=== PATIENT | female | born 1990 | race Caucasian/White ===

== ENCOUNTER 2016-10-04 20:42 | Inpatient (IN) | payer OTHER ==
[2016-10-04 20:49] VITALS: TEMP 99.4
[2016-10-04] MEDS ORDERED: LACTATED RINGERS SOLUTION 500 ML IV ONE (21:45)
[2016-10-04] MEDS ORDERED: LACTATED RINGERS SOLUTION 1,000 ML IV SCH (22:45)
[2016-10-04] MEDS ORDERED: BETAMET ACET/BETAMET NA PH 30 MG/5 ML VIAL IM ONE (22:58)
[2016-10-04] MEDS ORDERED: AMPICILLIN - 2 GM in SODIUM CHLORIDE 100 ML IVPB ONE (22:59)
[2016-10-04] MEDS ORDERED: ERYTHROMYCIN *INJECTION* 500 MG VIAL IVPB ONE (22:59)
--- NOTE | 2016-10-04 23:10 | PN ---
Progress Note, Physician Chief Complaint: Leakage of clear fluid History of Present Illness: 26 yo , @ 26.2 weeks, gestation, EDC 01/08/17, presents to L&D c/o leakage of clear fluid x 3 days. She decided to come today because abdominal cramps. - Current Medication List Current Medications: Active Medications Betamethasone Acet/Betameth SodPhos (Celestone Soluspan -) 12.5 mg IM ONCE ONE Stop: 10/04/16 22:59 Erythromycin Lactobionate (Erythromycin Injection -) 500 mg IVPB ONCE ONE Stop: 10/04/16 23:00 Ampicillin Sodium 2 gm/ Sodium (Chloride) 100 mls @ 200 mls/hr IVPB ONCE ONE Stop: 10/04/16 23:28 - Objective Vital Signs: Vital Signs Temperature 99.4 F 10/04/16 20:47 Pulse Rate 116 H 10/04/16 20:47 Respiratory Rate 20 10/04/16 20:47 Blood Pressure 128/72 10/04/16 20:47 O2 Sat by Pulse Oximetry (%) 99 10/04/16 20:47 Constitutional: Yes: Well Nourished Eyes: Yes: Conjunctiva Clear HENT: Yes: Atraumatic Neck: Yes: Supple, Trachea Midline Cardiovascular: Yes: Regular Rate and Rhythm Respiratory: Yes: Regular, CTA Bilaterally Gastrointestinal: Yes: Normal Bowel Sounds ...Rectal Exam: Yes: WNL Genitourinary: Yes: , Other (Leakage of clear fluid) Musculoskeletal: Yes: WNL Extremities: Yes: WNL Neurological: Yes: Alert, Oriented ...Motor Strength: WNL Psychiatric: Yes: Alert, Oriented Problem List - Problems (1) premature rupture of membranes (PPROM) with unknown onset of labor Code(s): O42.919 - PRETRM RON ROM, UNSP TIME BETW RUPT AND ONST LABR, UNSP TRI Assessment/Plan Premature rupture of membrane Admit to L&D IVF Betamethasone Ampicillin Erythromycin Stat CBC Consider transfer to [facility]
[2016-10-04 23:30] LABS: BASOPHIL 0.2 % (0-2.0); EOSINOPHIL 0.1 % (0-4.5); MCH 27.1 pg (25.7-33.7); MCHC 34.1 g/dl (32.0-36.0); MEAN CELL VOLUME 79.6 fl (80-96); MEAN PLT VOLUME 9.2 fl (7.5-11.1); PLATELET COUNT 191 K/MM3 (134-434); RDW 13.5 % (11.6-15.6); WHITE BLOOD COUNT 5.9 K/mm3 (4.0-10.0)
[2016-10-05 01:53] VITALS: BP 114/72; PULSE 113; BMI 40.0
== END 2016-10-05 01:25 | disposition short-term general hospital (02) | DRG 566 ==
LOC: JER 20:42 → JLDR 21:45
PROVIDERS: ADMIT Obstetrics & Gynecology; ATTEND Obstetrics & Gynecology
PROC: 3E033GC Introduction of Other Therapeutic Substance into Peripheral Vein, Percutaneous Approach (ICD-10-PCS; principal; 2016-10-04)
DX: O26.892 Other specified pregnancy related conditions, second trimester (principal); O42.919 Preterm premature rupture of membranes, unspecified as to length of time between rupture and onset of labor, unspecified trimester; Z3A.26 26 weeks gestation of pregnancy
CPT/HCPCS: 36415; 85025; 96372; 99281-25

== ENCOUNTER 2021-10-30 13:55 | Emergency (ER) | payer OTHER ==
[2021-10-30] MEDS ORDERED: SODIUM CHLORIDE 1,000 ML IV STA ×2 (14:17→16:46)
[2021-10-30 14:43] VITALS: BP 129/89; PULSE 75; TEMP 98.5; BMI 34.2
[2021-10-30] MEDS ORDERED: ACETAMINOPHEN 1000 MG/100 ML BAG IVPB ONE (15:03)
[2021-10-30] MEDS ORDERED: ACETAMINOPHEN INJECTION 100 ML IVPB ONE (15:18)
[2021-10-30 15:28] LABS: BASO % 0.8 % (0-2.0); EOS % 2.2 % (0-4.5); HEMATOCRIT 43.6 % (32.4-45.2); HEMOGLOBIN 14.6 GM/dL (10.7-15.3); LYMPH % 28.2 % (8-40); MCH 26.3 pg (25.7-33.7); MCHC 33.6 g/dl (32.0-36.0); MEAN CELL VOLUME 78.3 fl (80-96); MEAN PLT VOLUME 9.1 fl (7.5-11.1); MONO % 5.5 % (3.8-10.2); NEUT % 63.3 % (42.8-82.8); PLATELET COUNT 300 10^3/uL (134-434); RBC 5.57 M/mm3 (3.60-5.2); RDW 13.4 % (11.6-15.6); WHITE BLOOD COUNT 11.3 K/mm3 (4.0-10.0)
[2021-10-30 15:33] LABS: EPI CELLS 7 /uL (0-25.1); HYALINE CASTS 0 /uL (0-3.1); URINE APPEARANCE CLOUDY; URINE BACTERIA 64 /uL (0-1359); URINE BILIRUBIN NEGATIVE (NEGATIVE); URINE COLOR ORANGE; URINE GLUCOSE (UA) NEGATIVE (NEGATIVE); URINE KETONE NEGATIVE (NEGATIVE); URINE LEUK ESTERASE 1+ (NEGATIVE); URINE NITRITE NEGATIVE (NEGATIVE); URINE PROTEIN 1+ (NEGATIVE); URINE RBC 16408 /uL (0-23.9); URINE WBC 53 /uL (0-25.8)
[2021-10-30 15:39] LABS: HCG,QUALITATIVE URINE NEGATIVE
[2021-10-30 15:50] LABS: CALCIUM 9.1 mg/dL (8.5-10.1)
[2021-10-30 15:51] LABS: ALBUMIN 3.9 g/dl (3.4-5.0); BLOOD UREA NITROGEN 10.6 mg/dL (7-18)
[2021-10-30 15:54] LABS: CREATININE 0.6 mg/dL (0.55-1.3)
[2021-10-30 15:55] LABS: BILIRUBIN,TOTAL 0.3 mg/dL (0.2-1); TOT PROT 7.5 g/dl (6.4-8.2)
[2021-10-30] MEDS ORDERED: KETOROLAC TROMETHAMINE 30 MG/1 ML VIAL IVPUSH ONE (17:23)
[2021-10-30] MEDS ORDERED: KETOROLAC TROMETHAMINE 30 MG/1 ML VIAL ONE (17:56)
== END 2021-10-30 18:36 | disposition home or self-care (01) ==
LOC: JER 13:55
DX: N83.202 Unspecified ovarian cyst, left side (principal)
CPT/HCPCS: 36415; 76830-TC; 80053; 81003; 83690; 84703; 85025; 86850; 86900; 86901; 87086; 87491; 87591; 99284-25

== ENCOUNTER 2021-12-06 11:32 | Emergency (ER) | payer OTHER ==
[2021-12-06 11:43] VITALS: BP 120/87; PULSE 83; RESP 18; TEMP 98.5; BMI 44.9
[2021-12-06] MEDS ORDERED: IBUPROFEN 600 MG TABLET (FP) PO ONE ×2 (13:08→13:09)
== END 2021-12-06 13:25 | disposition home or self-care (01) ==
LOC: JERFT 11:32
DX: S90.111A Contusion of right great toe without damage to nail, initial encounter (principal); W20.8XXA Other cause of strike by thrown, projected or falling object, initial encounter
CPT/HCPCS: 73630-TC-RT-FY; 99283-25

== ENCOUNTER 2022-05-03 10:24 | Emergency (ER) | payer OTHER ==
[2022-05-03 10:56] VITALS: BP 132/76; PULSE 98; RESP 18; TEMP 98; BMI 46.0
[2022-05-03] MEDS ORDERED: IBUPROFEN 600 MG TABLET (FP) PO ONE ×2 (11:31→11:32)
== END 2022-05-03 13:11 | disposition home or self-care (01) ==
LOC: JERFT 10:24
DX: M79.89 Other specified soft tissue disorders (principal); M77.31 Calcaneal spur, right foot
CPT/HCPCS: 73610-TC-LT-FY; 73630-TC-LT; 99283-25

== ENCOUNTER 2022-05-09 22:38 | Emergency (ER) | payer OTHER ==
[2022-05-09 22:43] VITALS: BP 122/88; PULSE 95; RESP 17; TEMP 98.3; BMI 44.9
[2022-05-09] MEDS ORDERED: ACETAMINOPHEN 500 MG TABLET (FP) PO ONE (23:27)
[2022-05-09] MEDS ORDERED: MAG HYDROX/AL HYDROX/SIMETH 30 ML UNIT-DOSE CUP PO ONE (23:27)
[2022-05-09] MEDS ORDERED: ONDANSETRON 4 MG/2 ML VIAL IVPB ONE (23:28)
[2022-05-09] MEDS ORDERED: FAMOTIDINE 20 MG/50 ML IVPB 20 MG/50 ML MG IVPB ONE ×2 (23:28→23:53)
[2022-05-09] MEDS ORDERED: ACETAMINOPHEN 325 MG TABLET (FP) ONE (23:36)
[2022-05-09] MEDS ORDERED: ACETAMINOPHEN INJECTION 100 ML IVPB ONE (23:36)
[2022-05-09] MEDS ORDERED: MAG HYDROX/AL HYDROX/SIMETH 30 ML UNIT-DOSE CUP ONE (23:37)
[2022-05-09] MEDS ORDERED: ONDANSETRON 4 MG/2 ML VIAL ONE (23:37)
[2022-05-10 00:50] LABS: BASO % 0.4 % (0-2.0); EOS % 2.1 % (0-4.5); HEMATOCRIT 41.2 % (32.4-45.2); HEMOGLOBIN 13.6 GM/dL (10.7-15.3); LYMPH % 25.8 % (8-40); MCH 26.1 pg (25.7-33.7); MCHC 33.1 g/dl (32.0-36.0); MEAN PLT VOLUME 9.4 fl (7.5-11.1); MONO % 6.4 % (3.8-10.2); NEUT % 65.3 % (42.8-82.8); PLATELET COUNT 281 10^3/uL (134-434); RBC 5.21 M/mm3 (3.60-5.2); RDW 13.4 % (11.6-15.6); WHITE BLOOD COUNT 13.2 K/mm3 (4.0-10.0)
[2022-05-10 01:54] LABS: CALCIUM 8.5 mg/dL (8.5-10.1)
[2022-05-10 01:55] LABS: ALBUMIN 3.4 g/dl (3.4-5.0); BLOOD UREA NITROGEN 15.2 mg/dL (7-18)
[2022-05-10 02:00] LABS: BILIRUBIN,TOTAL 0.3 mg/dL (0.2-1); TOT PROT 7.1 g/dl (6.4-8.2)
== END 2022-05-10 02:11 | disposition home or self-care (01) ==
LOC: JER 22:38
PROC: 3E033GC Introduction of Other Therapeutic Substance into Peripheral Vein, Percutaneous Approach (ICD-10-PCS; principal; 2022-05-09)
PROC: 3E033GC Introduction of Other Therapeutic Substance into Peripheral Vein, Percutaneous Approach (ICD-10-PCS; 2022-05-09)
DX: K80.20 Calculus of gallbladder without cholecystitis without obstruction (principal); K80.51 Calculus of bile duct without cholangitis or cholecystitis with obstruction
CPT/HCPCS: 0241U-QW; 36415; 76705-TC; 80053; 83690; 84484; 85025; 93005; 93010; 99285-25

== ENCOUNTER 2022-05-21 07:50 | Emergency (ER) | payer OTHER ==
[2022-05-21] MEDS ORDERED: ACETAMINOPHEN 1000 MG/100 ML BAG IVPB ONE (07:54)
[2022-05-21] MEDS ORDERED: ONDANSETRON 4 MG/2 ML VIAL IVPUSH ONE (07:54)
[2022-05-21] MEDS ORDERED: SODIUM CHLORIDE 0.9% 500 ML INFUS.BAG IV ONE (07:54)
[2022-05-21 08:07] VITALS: RESP 18; BMI 44.9
[2022-05-21] MEDS ORDERED: MAG HYDROX/AL HYDROX/SIMETH 30 ML UNIT-DOSE CUP PO ONE (08:15)
[2022-05-21] MEDS ORDERED: FAMOTIDINE 20 MG TABLET PO ONE (08:15)
[2022-05-21] MEDS ORDERED: FAMOTIDINE 20 MG TABLET ONE (08:29)
[2022-05-21] MEDS ORDERED: MAG HYDROX/AL HYDROX/SIMETH 30 ML UNIT-DOSE CUP ONE (08:30)
[2022-05-21] MEDS ORDERED: ONDANSETRON 4 MG/2 ML VIAL ONE (08:30)
[2022-05-21] MEDS ORDERED: ACETAMINOPHEN INJECTION 100 ML IVPB ONE (09:35)
[2022-05-21 10:02] LABS: BASO % 0.5 % (0-2.0); EOS % 2.6 % (0-4.5); HEMATOCRIT 43.5 % (32.4-45.2); HEMOGLOBIN 14.5 GM/dL (10.7-15.3); LYMPH % 37.5 % (8-40); MCH 26.1 pg (25.7-33.7); MCHC 33.3 g/dl (32.0-36.0); MEAN CELL VOLUME 78.4 fl (80-96); MEAN PLT VOLUME 9.4 fl (7.5-11.1); MONO % 5.2 % (3.8-10.2); NEUT % 54.2 % (42.8-82.8); PLATELET COUNT 284 10^3/uL (134-434); RBC 5.55 M/mm3 (3.60-5.2); RDW 13.8 % (11.6-15.6); WHITE BLOOD COUNT 7.1 K/mm3 (4.0-10.0)
[2022-05-21 10:11] LABS: CALCIUM 9.2 mg/dL (8.5-10.1)
[2022-05-21 10:12] LABS: BLOOD UREA NITROGEN 14.1 mg/dL (7-18)
[2022-05-21 10:15] LABS: CREATININE 0.7 mg/dL (0.55-1.3)
[2022-05-21 10:16] LABS: BILIRUBIN,TOTAL 0.3 mg/dL (0.2-1); TOT PROT 7.4 g/dl (6.4-8.2)
[2022-05-21 11:27] LABS: EPI CELLS 27 /uL (0-25.1); HYALINE CASTS 0 /uL (0-3.1); PH,URINE 5.5 (5.0-8.0); URINE APPEARANCE CLEAR; URINE BACTERIA 606 /uL (0-1359); URINE BILIRUBIN NEGATIVE (NEGATIVE); URINE COLOR YELLOW; URINE GLUCOSE (UA) NEGATIVE (NEGATIVE); URINE KETONE NEGATIVE (NEGATIVE); URINE LEUK ESTERASE NEGATIVE (NEGATIVE); URINE NITRITE NEGATIVE (NEGATIVE); URINE PROTEIN NEGATIVE (NEGATIVE); URINE RBC 10 /uL (0-23.9); URINE UROBILINOGEN 0.2 mg/dL (0.2-1.0); URINE WBC 55 /uL (0-25.8)
[2022-05-21 11:32] VITALS: BP 127/90; PULSE 79; TEMP 98.3
== END 2022-05-21 11:10 | disposition home or self-care (01) ==
LOC: JER 07:50 → UNDOADMIN 11:33 → JERBED 11:33
PROC: 3E033GC Introduction of Other Therapeutic Substance into Peripheral Vein, Percutaneous Approach (ICD-10-PCS; principal; 2022-05-21)
DX: K80.20 Calculus of gallbladder without cholecystitis without obstruction (principal)
CPT/HCPCS: 36415; 76705-TC; 80053; 81003; 83690; 84703; 85025; 87086; 99284-25

== ENCOUNTER 2022-05-25 04:15 | Day surgery (SDC) | payer OTHER ==
[2022-05-24 10:03] VITALS: BMI 46.5
[~2022-05-25 04:15] MED LIST: BUPIVACAINE HCL/PF 0.25% (2.5MG/ML) 10 ML VIAL IJ ONE; ceFAZolin SODIUM 1 GM VIAL IVPB ONE
[2022-05-25] MEDS ORDERED: BUPIVACAINE HCL/PF 0.25% (2.5MG/ML) 10 ML VIAL ONE (07:17)
[2022-05-25] MEDS ORDERED: DEXMEDETOMIDINE HCL 200 MCG/2 ML IVPB ONE (07:27)
[2022-05-25] MEDS ORDERED: ACETAMINOPHEN INJECTION 100 ML IVPB ONE (07:27)
[2022-05-25] MEDS ORDERED: PROPOFOL 20 ML ONE ×4 (08:20→10:45)
[2022-05-25] MEDS ORDERED: SUCCINYLCHOLINE CHLORIDE 200 MG/10 ML SYRINGE ONE ×2 (08:20→08:48)
[2022-05-25] MEDS ORDERED: ROCURONIUM BROMIDE 50 MG/5 ML SYRINGE ONE ×2 (08:20→08:42)
[2022-05-25] MEDS ORDERED: MIDAZOLAM HCL 2 MG/2 ML SINGLE DOSE VIAL ONE (08:20)
[2022-05-25] MEDS ORDERED: ceFAZolin SODIUM 1 GM VIAL IVPB ONE (09:11)
[2022-05-25] MEDS ORDERED: ONDANSETRON 4 MG/2 ML VIAL ONE ×2 (09:22→14:00)
[2022-05-25] MEDS ORDERED: KETOROLAC TROMETHAMINE 30 MG/1 ML VIAL ONE (09:22)
[2022-05-25] MEDS ORDERED: DEXAMETHASONE SOD PHOSPHATE 4 MG/1 ML VIAL ONE (09:22)
[2022-05-25] MEDS ORDERED: NEOSTIGMINE METHYLSULFATE 0.5 MG/ML - 10 ML MDV ONE (10:32)
[2022-05-25] MEDS ORDERED: GLYCOPYRROLATE 0.2 MG/1 ML VIAL ONE ×2 (10:32)
[2022-05-25] MEDS ORDERED: BUPIVACAINE HCL/PF 0.25% (2.5MG/ML) 10 ML VIAL IJ ONE (11:00)
[2022-05-25] MEDS ORDERED: oxyCODONE HCL 5 MG TABLET PO PRN (11:32)
[2022-05-25] MEDS ORDERED: ONDANSETRON 4 MG/2 ML VIAL IVPUSH PRN (11:32)
[2022-05-25] MEDS ORDERED: ACETAMINOPHEN 325 MG TABLET (FP) PO PRN (11:32)
[2022-05-25] MEDS ORDERED: LACTATED RINGERS SOLUTION 1,000 ML IV SCH (11:45)
[2022-05-25 13:21] VITALS: RESP 16
[2022-05-25] MEDS ORDERED: ONDANSETRON 4 MG/2 ML VIAL IVPUSH ONE (14:05)
[2022-05-25 14:33] VITALS: BP 124/70; PULSE 66; TEMP 97.5
== END 2022-05-25 15:00 | disposition home or self-care (01) ==
LOC: JASU-SURG 04:15
PROVIDERS: ATTEND Surgery
PROC: 0FT44ZZ Resection of Gallbladder, Percutaneous Endoscopic Approach (ICD-10-PCS; principal; 2022-05-25 08:30)
DX: K80.10 Calculus of gallbladder with chronic cholecystitis without obstruction (principal)
CPT/HCPCS: 81025; 88304-TC; 94760

== ENCOUNTER 2022-05-27 09:27 | Emergency (ER) | payer OTHER ==
[2022-05-27] MEDS ORDERED: morphine CARPU-JECT 4 MG/1 ML DISP.SYRIN IVPUSH ONE (09:51)
[2022-05-27] MEDS ORDERED: morphine SULFATE 4 MG/ML VIAL ONE (10:02)
[2022-05-27 10:15] LABS: BASO % 0.9 % (0-2.0); EOS % 2.1 % (0-4.5); HEMATOCRIT 38.8 % (32.4-45.2); HEMOGLOBIN 13.1 GM/dL (10.7-15.3); LYMPH % 32.2 % (8-40); MCH 26.3 pg (25.7-33.7); MCHC 33.8 g/dl (32.0-36.0); MEAN CELL VOLUME 77.7 fl (80-96); MEAN PLT VOLUME 9.5 fl (7.5-11.1); MONO % 5.5 % (3.8-10.2); NEUT % 59.3 % (42.8-82.8); PLATELET COUNT 249 10^3/uL (134-434); RDW 13.8 % (11.6-15.6); WHITE BLOOD COUNT 9.4 K/mm3 (4.0-10.0)
[2022-05-27 10:37] LABS: ALBUMIN 3.3 g/dl (3.4-5.0); BLOOD UREA NITROGEN 11.4 mg/dL (7-18); CALCIUM 8.7 mg/dL (8.5-10.1)
[2022-05-27 10:39] LABS: CREATININE 0.7 mg/dL (0.55-1.3)
[2022-05-27 10:41] LABS: TOT PROT 6.5 g/dl (6.4-8.2)
[2022-05-27 10:44] LABS: BILIRUBIN,TOTAL 0.4 mg/dL (0.2-1)
[2022-05-27 11:18] VITALS: BMI 44.9
[2022-05-27 13:13] VITALS: RESP 16
[2022-05-27 18:47] VITALS: BP 110/60; PULSE 76; TEMP 98.2
== END 2022-05-27 18:48 | disposition home or self-care (01) ==
LOC: JER 09:27
PROC: 3E033GC Introduction of Other Therapeutic Substance into Peripheral Vein, Percutaneous Approach (ICD-10-PCS; principal; 2022-05-27)
DX: R10.84 Generalized abdominal pain (principal)
CPT/HCPCS: 36415; 71045-TC-FY; 74177-TC; 80053; 83605; 83690; 85025; 93005; 93010; 99285-25; Q9967

== ENCOUNTER 2022-07-27 13:33 | Emergency (ER) | payer OTHER ==
[2022-07-27 13:59] VITALS: BP 115/90; PULSE 98; RESP 18; TEMP 98.2; BMI 44.9
[2022-07-27] MEDS ORDERED: SODIUM CHLORIDE 0.9% 500 ML INFUS.BAG IV ONE (14:11)
[2022-07-27] MEDS ORDERED: ACETAMINOPHEN 1000 MG/100 ML BAG IVPB ONE (14:11)
[2022-07-27] MEDS ORDERED: ONDANSETRON 4 MG/2 ML VIAL IVPUSH ONE (14:11)
[2022-07-27] MEDS ORDERED: ONDANSETRON 4 MG/2 ML VIAL ONE (14:54)
[2022-07-27] MEDS ORDERED: ACETAMINOPHEN INJECTION 100 ML IVPB ONE (14:54)
[2022-07-27 15:40] LABS: BASO % 0.1 % (0-2.0); EOS % 0.4 % (0-4.5); HEMATOCRIT 42.5 % (32.4-45.2); HEMOGLOBIN 14.7 GM/dL (10.7-15.3); LYMPH % 10.5 % (8-40); MCH 26.3 pg (25.7-33.7); MCHC 34.5 g/dl (32.0-36.0); MEAN CELL VOLUME 76.3 fl (80-96); MEAN PLT VOLUME 9.3 fl (7.5-11.1); MONO % 4.5 % (3.8-10.2); NEUT % 84.5 % (42.8-82.8); PLATELET COUNT 266 10^3/uL (134-434); RBC 5.57 M/mm3 (3.60-5.2); RDW 13.7 % (11.6-15.6); WHITE BLOOD COUNT 10.6 K/mm3 (4.0-10.0)
[2022-07-27 16:08] LABS: CALCIUM 8.5 mg/dL (8.5-10.1)
[2022-07-27 16:09] LABS: BLOOD UREA NITROGEN 15.7 mg/dL (7-18)
[2022-07-27 16:12] LABS: CREATININE 0.7 mg/dL (0.55-1.3)
== END 2022-07-27 16:40 | disposition home or self-care (01) ==
LOC: JER 13:33
PROC: 3E033GC Introduction of Other Therapeutic Substance into Peripheral Vein, Percutaneous Approach (ICD-10-PCS; principal; 2022-07-27)
DX: R11.2 Nausea with vomiting, unspecified (principal)
CPT/HCPCS: 36415; 80048; 85025; 99284-25

== ENCOUNTER 2022-09-20 16:03 | Emergency (ER) | payer OTHER ==
[2022-09-20 16:15] VITALS: BP 122/73; PULSE 80; RESP 18; TEMP 98; BMI 44.9
[2022-09-20] MEDS ORDERED: KETOROLAC TROMETHAMINE 30 MG/1 ML VIAL IM ONE (16:58)
[2022-09-20] MEDS ORDERED: CYCLOBENZAPRINE HCL 10 MG TABLET (FP) PO ONE (16:58)
[2022-09-20] MEDS ORDERED: ACETAMINOPHEN 500 MG TABLET (FP) PO ONE (16:58)
[2022-09-20] MEDS ORDERED: ACETAMINOPHEN 500 MG TABLET (FP) ONE (17:05)
[2022-09-20] MEDS ORDERED: CYCLOBENZAPRINE HCL 10 MG TABLET (FP) ONE (17:05)
[2022-09-20] MEDS ORDERED: KETOROLAC TROMETHAMINE 30 MG/1 ML VIAL ONE (17:05)
== END 2022-09-20 17:40 | disposition home or self-care (01) ==
LOC: JERFT 16:03
PROC: 3E0233Z Introduction of Anti-inflammatory into Muscle, Percutaneous Approach (ICD-10-PCS; principal; 2022-09-20)
DX: M25.512 Pain in left shoulder (principal)
CPT/HCPCS: 73000-TC-LT-FY; 73030-TC-LT-FY; 99284-25